=== PATIENT | male | born 1995 | race Two or more races ===

== ENCOUNTER 2018-09-12 16:54 | Emergency (ER) | payer OTHER ==
--- NOTE | 2018-09-12 17:09 | EDPHY ---
General - History Smoking Status: Never smoked Time Seen by Provider: 09/12/18 17:08 Narrative: CLINICAL IMPRESSION: Epigastric pain, nausea and vomiting ASSESSMENT/PLAN: Patient is a 23-year-old male with no significant medical history who presents to the Emergency Department with sudden-onset epigastric pain, nausea and vomiting after eating pancakes earlier this morning. Patient is afebrile, he is uncomfortable appearing however not toxic-appearing. His abdomen was soft and nondistended, tender in the epigastrium without focal peritoneal signs. ECG revealed normal sinus rhythm with a heart rate of 94, no findings to suggest acute ischemia. CBC revealed mild leukocytosis of 14,000 I suspect reactive in secondary to multiple episodes of emesis. His vital signs were reviewed and there was no evidence of sepsis or serious bacterial illness. BMP revealed no significant metabolic abnormality or evidence of acute kidney injury. Lipase normal without evidence of acute pancreatitis, AST and ALT elevated. Right upper quadrant ultrasound unremarkable- no findings to suggest acute cholecystitis or acute hepatobiliary obstruction. Hepatitis panel pending at discharge. History and physical examination is most consistent with epigastric abdominal pain, nausea and vomiting. It is unclear the exact cause however query viral gastroenteritis, acute hepatitis, acute food borne illness and possible hyperemesis cannabinoid. The patient was given IV fluids, antiemetic, single dose of narcotic and GI cocktail with near complete resolution of his pain in the emergency department. On repeat examination the patient denied any further pain or nausea, his abdomen was soft with very mild tenderness to palpation in the epigastrium. Discussed CT scan for further evaluation of possible etiologies however patient refused and would prefer observation with conservative return precautions. I have a low suspicion for other etiologies to include acute appendicitis, kidney stone, ACS, dissection, perforated viscus or other acute intra-abdominal process. The patient does not have a primary care provider, I gave him a referral and discussed the importance of close follow-up in repeat examination. He is aware of his elevated ALT and AST and understands that he will need his liver function panel re-evaluated. He will avoid alcohol and Tylenol containing products, also discussed obtaining from marijuana use. Strict return precautions discussed- he will return for increased or unmanageable pain, fever, recurrent vomiting, vomiting blood or coffee grounds, decreased urine output or other signs of dehydration or for any other new, worsening or worrisome symptoms. Patient verbalizes understanding and he is in agreement with this plan. DIFFERENTIAL DX: Epigastric pain including but not limited to biliary colic, cholecystitis, peptic ulcer disease, pancreatitis, and gastroenteritis. ED COURSE: 1813: ECG reviewed by myself and Dr. Rowland, no evidence of acute ischemia. Normal sinus rhythm at 94. 1821: Patient with mild leukocytosis 14,000, ALT and AST elevated. Right upper quadrant ultrasound with no acute findings. Hepatitis panel ordered. 1904: On repeat examination the patient is much more comfortable appearing. He denies any pain at rest. His abdomen is soft with very mild tenderness to palpation in the epigastrium. 1934: On repeat exam in after GI cocktail patient denies any pain whatsoever. His abdomen is soft, still very mildly tender upon palpation in the epigastrium without peritoneal signs. Feels ready to be discharged home, is tolerating p.o.. CHIEF COMPLAINT: Epigastric pain, nausea, vomiting HPI: Patient is a 23-year-old otherwise healthy male presents to the emergency department with a sudden onset of upper abdominal pain after drinking coffee and eating pancakes at 10:00 a.m.. Patient reports he felt well this morning, went to work had a cup of coffee and ate some pancakes, proximally 20 min later he started having some achy sensation in his upper abdomen. Patient reports that it waxes and wanes in its intensity. He started to experience some associated nausea shortly thereafter and has vomited approximately 6-7 times. Denies any hematemesis, chest pain or shortness of breath. There is no radiation of the pain. He does smoke about a g of marijuana daily, smokes marijuana after he started experiencing pain in hopes that this would help however it did not. He denies any fever however when the pain is most intense he starts sweating. He denies any lower abdominal pain, testicular pain or swelling. He has had no abdominal surgeries. He has never experienced anything similar. Bowel movements have been regular and normal. PMH: Denies Pertinent Past Surgical History: Denies Family History: Not contributory Social History: Denies alcohol, daily marijuana use REVIEW OF SYSTEMS: All other systems negative Constitutional: No fever. Eyes: No discharge, vision change ENT: No sore throat, congestion, ear pain. Cardiovascular: No chest pain, no palpitations. Respiratory: No cough, no shortness of breath. Gastrointestinal: Abdominal pain, nausea and vomiting. No constipation or diarrhea. Genitourinary: No hematuria, dysuria, flank pain or testicular pain. Musculoskeletal: No back pain, joint swelling, joint pain, myalgias. Skin: No rashes, color change. Neurological: No headache, dizziness, weakness. PHYSICAL EXAM: General Appearance: Alert, patient is tearful and uncomfortable appearing however not toxic-appearing. HENT: Normocephalic, atraumatic. Bilateral external ears are normal. Bilateral tympanic membranes are normal with pearly villegas reflex. Nares are clear, mucosa is pink. Oropharynx is clear however mucosa is mildly dry, uvula is midline. There is no tonsillar enlargement or exudate. The dentition is normal. Eyes: PERRLA, EOMI. Conjunctiva pink, no pallor or injection. Neck: Supple, nontender, no lymphadenopathy, no midline pain, FROM, no meningismus. Respiratory: There are no retractions, lungs are clear to auscultation. Cardiac: Regular rate and rhythm, no murmurs or gallops. Gastrointestinal: Abdomen is soft and nondistended. He has tenderness in the epigastrium mildly in the right upper quadrant. There is no rigidity, guarding or focal peritoneal findings. Bowel sounds are present, there are no masses or hernias appreciated. Neurological: Alert and oriented x 3, CN 2-12 grossly intact, normal gait no ataxia, DTR's intact, normal sensation and strength Skin: Warm, dry, no rashes, no nodules on palpation. Musculoskeletal: Extremities are symmetrical, full range of motion, no tenderness, deformity, swelling, or erythema. Psychiatric: Patient is oriented X 3, there is no agitation. MEDICAL DECISION MAKING: Patient was seen independently. Secondary supervising physician at time of evaluation was Dr. Rowland. Diagnosis: Epigastric pain, nausea and vomiting. New, requires workup Summary: See Assessment and Plan for summary of ED visit Clinical lab tests: ordered / reviewed. Independent visualization of images, tracing, or specimens: Yes. Decision to obtain medical records or history from someone other than the patient: No Review / Summarize previous medical records: Yes Discussed patient with another provider: Yes, Dr. Rowland Patient Progress: Stable, discharge. (Cindy Padilla) Discussion: The patient was evaluated and managed by the Physician [employer]. I discussed the patient's presentation and course with the midlevel provider with them and agree with the evaluation. My co-signature indicates that I have reviewed this chart and I agree with the findings and plan of care as documented. I am the secondary supervising physician. (Litzy Rowland) - Objective Vital Signs: Initial Vital Signs Temperature (C) 36.6 C 09/12/18 16:58 Heart Rate 99 09/12/18 16:58 Respiratory Rate 18 09/12/18 16:58 Blood Pressure 128/85 H 09/12/18 16:58 O2 Sat (%) 100 09/12/18 16:58 O2 Delivery Mode Nasal Cannula O2 (L/minute) 2 Allergies/Adverse Reactions: No Known Allergies Allergy (Unverified 09/12/18 16:59) Home Medications: Medication Instructions Recorded Ondansetron Odt [Zofran Odt] 4 mg PO Q8 PRN #5 tab 09/12/18 Laboratory Results: Laboratory Results 09/12/18 17:11 09/12/18 17:16 Medications Given: Discontinued Medications Al Hydroxide/Mg Hydroxide (Maalox Susp) 30 ml PO ONCE ONE Stop: 09/12/18 18:37 Last Admin: 09/12/18 19:05 Dose: 30 ml Hydromorphone HCl (Dilaudid) 0.5 mg IVP EDNOW ONE Stop: 09/12/18 17:22 Last Admin: 09/12/18 17:29 Dose: 0.5 mg Hyoscyamine Sulfate (Levsin, Hyomax-Sl) 0.25 mg PO ONCE ONE Stop: 09/12/18 18:37 Last Admin: 09/12/18 19:05 Dose: 0.25 mg Sodium Chloride (Ns) 1,000 mls @ 0 mls/hr IV ONCE ONE PRN Reason: Wide Open Stop: 09/12/18 17:22 Last Admin: 09/12/18 17:28 Dose: 1,000 mls Lidocaine (Lidocaine 2% Viscous) 15 ml PO ONCE ONE Stop: 09/12/18 18:37 Last Admin: 09/12/18 19:05 Dose: 15 ml Ondansetron HCl (Zofran) 4 mg IVP Q4 PRN PRN Reason: Nausea/Vomiting, Can't Take PO Stop: 03/11/19 17:20 Last Admin: 09/12/18 17:28 Dose: 4 mg Ondansetron HCl (Zofran Odt 4 Mg Prepack#2) 1 btl TAKEHOME EDNOW ONE Stop: 09/12/18 19:34 Last Admin: 09/12/18 19:41 Dose: 1 btl Departure - Departure Disposition: Home, Routine, Self-Care Clinical Impression: Epigastric pain Condition: Good Instructions: Ondansetron (By mouth), Acute Nausea and Vomiting (ED), Epigastric Pain (ED) Additional Instructions: DISCHARGE INSTRUCTIONS FROM YOUR DOCTOR Thank you for visiting our emergency department today. Please keep in mind that discharge from the emergency department does not mean that there is nothing wrong - it simply means that we have not identified an emergency condition that requires further evaluation or treatment in the hospital. You should always plan to follow up with primary care for re-evaluation of your condition in the next 2-3 days. Your liver enzymes were noted to be mildly elevated, you will need this rechecked. A hepatitis panel is still pending at this time. Rest, push non-diuretic, non-caffeinated fluids, clear liquid diet, then a BRAT diet (bananas, rice, applesauce, toast), then slowly advance diet to normal. Attempt small frequent meals. Please try to avoid cannabis, avoid Tylenol products and alcohol. Zofran as prescribed as needed for any recurrent nausea and/or vomiting. Schedule a follow-up appointment with your primary care physician in the next 1- 2 days for re-evaluation. Bring a copy of your test results with you to that appointment. Return for increased or unmanageable pain, new site or character of pain, flank pain, groin pain, pelvic pain, development of fever, chills, recurrent vomiting , vomiting blood or coffee grounds, diarrhea, constipation, bloody stools, black tarry stools, burning or pain with urination, bloody urine, inability to urinate, decreased urine output or other signs of dehydration, dizziness, weakness, fainting, difficulty breathing or swallowing, chest pain, or for any other new, worsening or worrisome symptoms. People present with illnesses and injuries in different ways, and it is always possible that we have missed something. You may always return for re-evaluation if symptoms worsen or if they are not improving or if you develop new/different symptoms. Again, thank you for choosing our emergency department. We hope that you feel better. Referrals: Peng Berg MD [Medical Doctor] - 2-3 days without fail (Please call for thing Saturday to schedule follow-up for establishing care with a primary care provider.) Prescriptions: Ondansetron Odt [Zofran Odt] 4 mg PO Q8 PRN #5 tab PRN Reason: Nausea/Vomiting, Can'T Take Po
[2018-09-12] MEDS ORDERED: HYDROmorphONE/DILAUDID 2 MG/ML INJ IVP ONE (17:21)
[2018-09-12] MEDS ORDERED: ONDANSETRON 4 MG/2 ML VIAL IVP PRN (17:21)
[2018-09-12] MEDS ORDERED: NS 1,000 ML IV ONE (17:21)
[2018-09-12 18:07] LABS: PLATELET COUNT 272 10^3/uL (150-400)
[2018-09-12] MEDS ORDERED: HYOSCYAMINE SULFATE 0.125 MG TAB PO ONE (18:36)
[2018-09-12] MEDS ORDERED: MAG HYDROX/AL HYDROX/SIMETH 30 ML UDCUP PO ONE (18:36)
[2018-09-12] MEDS ORDERED: LIDOCAINE 2% VISCOUS 15 ML UDCUP PO ONE (18:36)
[2018-09-12 19:08] VITALS: BP 117/66
[2018-09-12] MEDS ORDERED: ONDANSETRON 4MG PREPACK#2 BTL TAKEHOME ONE (19:33)
--- NOTE | 2018-09-12 22:15 | CPEKG ---
Test Reason : OPEN Blood Pressure : / mmHG Vent. Rate : 094 BPM Atrial Rate : 093 BPM P-R Int : 116 ms QRS Dur : 087 ms QT Int : 345 ms P-R-T Axes : 076 047 031 degrees QTc Int : 432 ms Sinus rhythm Probable left atrial enlargement Confirmed by Litzy Rowland ([id number]) on 09/12/2018 10:15:26 PM Referred By: Litzy Rowland Confirmed By:Litzy Rowland
[2018-09-12 23:17] LABS: HEPATITIS A ANTIBODY IGM (BCH) NEGATIVE (NEGATIVE); HEPATITIS B CORE AB IGM NEGATIVE (NEGATIVE); HEPATITIS B SURFACE ANTIGEN NEGATIVE (NEGATIVE); HEPATITIS C ANTIBODY TOTAL NEGATIVE (NEGATIVE)
== END 2018-09-12 19:56 | disposition home or self-care (01) ==
DX: R10.13 Epigastric pain (principal); R11.2 Nausea with vomiting, unspecified
CPT/HCPCS: 96374; G0472; J1170; J2405